=== PATIENT | male | born 1950 | race Caucasian/White ===

== ENCOUNTER 2017-12-27 17:45 | Emergency (ER) | payer OTHER ==
[~2017-12-27] VITALS: Ht 193 cm; Wt 90.7 kg
[~2017-12-27 17:45] MED LIST: DUONEB 0.5 MG-33 ML INH; FLOMAX0.4 MG PO; LEVOTHYROXINE50 MCG PO; METFORMIN HCL500 MG PO; NORCO 5-325 TA1 EACH PO; PREDNISONE20 MG PO; PROVENTIL HFA6.7 GM INH; VITAMIN C1000 M1 PO; VITAMIN D5000 UNIT PO; ZITHROMAX250 MG PO; ZOFRAN ODT8 MG SL
== END 2017-12-27 18:01 | disposition home or self-care (01) ==
LOC: ED 17:45
DX: R51 Headache (principal); J34.89 Other specified disorders of nose and nasal sinuses

== ENCOUNTER 2018-07-30 12:38 | Emergency (ER) | payer OTHER ==
[~2018-07-30] VITALS: Ht 193 cm; Wt 90.7 kg
[2018-07-30] MEDS ORDERED: VENTOLIN HFA18 GM INH (13:12)
[2018-07-30] MEDS ORDERED: ZITHROMAX250 MG PO (13:12)
== END 2018-07-30 14:36 | disposition home or self-care (01) ==
LOC: ED 12:38
DX: J10.1 Influenza due to other identified influenza virus with other respiratory manifestations (principal); E11.9 Type 2 diabetes mellitus without complications; Z87.891 Personal history of nicotine dependence; Z88.5 Allergy status to narcotic agent; Z79.84 Long term (current) use of oral hypoglycemic drugs; Z79.899 Other long term (current) drug therapy
CPT/HCPCS: 71046; 87502; 99283-25